=== PATIENT | male | born 1985 | race Two or more races ===

== ENCOUNTER 2018-01-07 18:21 | Emergency (ER) | payer OTHER ==
[~2018-01-07] VITALS: Ht 180.3 cm; Wt 77.1 kg
== END 2018-01-07 23:51 | disposition home or self-care (01) ==
LOC: ER 18:21
DX: R00.2 Palpitations (principal); R53.81 Other malaise; F41.0 Panic disorder [episodic paroxysmal anxiety]

== ENCOUNTER 2022-03-01 23:00 | Emergency (ER) | payer OTHER ==
[~2022-03-01] VITALS: Ht 180.3 cm; Wt 79.4 kg
== END 2022-03-01 23:37 | disposition home or self-care (01) ==
LOC: ER 23:00
DX: M54.2 Cervicalgia (principal)

== ENCOUNTER 2022-03-07 19:51 | Emergency (ER) | payer OTHER ==
[~2022-03-07] VITALS: Ht 180.3 cm; Wt 77.1 kg
[2022-03-07] MEDS ORDERED: CARAFATE1 GM PO (21:37)
[2022-03-07] MEDS ORDERED: PEPCID AC20 MG PO (21:37)
== END 2022-03-07 21:40 | disposition home or self-care (01) ==
LOC: ER 19:51
DX: K29.70 Gastritis, unspecified, without bleeding (principal)

== ENCOUNTER → 2023-06-08 | Emergency (ER) | payer OTHER ==
[~2023-06-08] VITALS: Ht 180.3 cm; Wt 81.6 kg
[~2023-06-08] MED LIST: CARAFATE1 GM PO; PEPCID AC20 MG PO
== END | disposition left against medical advice (07) ==
LOC: ER 00:14
DX: Z53.21 Procedure and treatment not carried out due to patient leaving prior to being seen by health care provider (principal)